=== PATIENT | female | born 1975 | race Caucasian/White ===

== ENCOUNTER → 2016-09-07 | Outpatient (CLI) | payer BC ==
[~2016-09-07] MED LIST: DASETTA 1-35-21 EACH PO; MOBIC15 MG PO; PATADAY2.5 ML OPHTH; XARELTO15 MG PO; XARELTO20 MG PO; ZITHROMAX250 MG PO; ZYRTEC10 MG PO
--- NOTE | ~2016-09-07 | ENPV ---
Vascular Lower Extremities DVT Study Procedure Demographics Patient Name CHIP OLMSTEAD Date of Study 09/07/2016 Patient Number [id number] Gender Female Date of 1975 Age 40 Visit Number [id number] Height Accession Number [id number] Weight Room Number BSA BMI Referring Keesha Resendiz MD Interpreting Charlie Johnson MD Physician Physician Physician Ordering Physician [employer]ist Judith Crowley [facility] Conclusions Summary Right lower extremity negative for DVT Procedure Type of Study: Veins:Lower Extremities DVT Study, Lower Extremity Right. Patient Status:Routine. Study Location:Inpatient Portable. Velocities are measured in cm/s ; Diameters are measured in cm Right Lower Extremities DVT Study Measurements Right 2D and Doppler Measurements + + + + +------+------+ + !Location !Visualized!Compressibility!Thrombosis!Signal!Reflux!Reflux ! ! ! ! ! ! ! !(sec) ! + + + + +------+------+ + !GSV Thigh !Yes !Yes !None !Phasic!No ! ! + + + + +------+------+ + !Common !Yes !Yes !None !Phasic!No ! ! !Femoral ! ! ! ! ! ! ! + + + + +------+------+ + !Prox !Yes !Yes !None !Phasic!No ! ! !Femoral ! ! ! ! ! ! ! + + + + +------+------+ + !Mid Femoral!Yes !Yes !None !Phasic!No ! ! + + + + +------+------+ + !Dist !Yes !Yes !None !Phasic!No ! ! !Femoral ! ! ! ! ! ! ! + + + + +------+------+ + !Popliteal !Yes !Yes !None !Phasic!No ! ! + + + + +------+------+ + !Gastroc !Yes !Yes !None !Phasic!No ! ! + + + + +------+------+ + !PTV !Yes !Yes !None !Phasic!No ! ! + + + + +------+------+ + !Peroneal !Yes !Yes !None !Phasic!No ! ! + + + + +------+------+ + Left Lower Extremities DVT Study Measurements Left 2D and Doppler Measurements + + + + +------+------+ + !Location !Visualized!Compressibility!Thrombosis!Signal!Reflux!Reflux ! ! ! ! ! ! ! !(sec) ! + + + + +------+------+ + !Common !Yes !Yes !None ! ! ! ! !Femoral ! ! ! ! ! ! ! + + + + +------+------+ + Signature dtt: REECE MCKINNON dtd: 09/07/16 1752 Physician Self Edit
== END | disposition disaster alternative care site (69) ==
LOC: GCAR 17:40
DX: R60.9 Edema, unspecified (principal)

== ENCOUNTER → 2016-09-28 | Day surgery (SDC) | payer BC ==
[~2016-09-28] VITALS: Ht 166.4 cm; Wt 91.1 kg
--- NOTE | ~2016-09-28 | OR ---
[facility] 40 Y [address] ROOM: [place] [address] LOCATION: [facility] ADMIT DATE: 09/28/2016 OR/Procedure Report DISCHARGE DATE: FAMILY PHYSICIAN: Enrrique Madden MD ATTENDING PHYSICIAN: Enrrique Madden SURGEON: Gera Saavedra MD BAG SEALER: DATE OF PROCEDURE: 09/28/2016 PROCEDURE: Right L4-L5 transforaminal epidural steroid injection. 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 She has undergone conservative therapy and physical therapy. 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 Madden. Risks, benefits, and alternatives were explained to the patient, she wished to proceed. DESCRIPTION OF PROCEDURE: She was taken to the procedure room and placed in prone position. Fluoroscopy was used to identify the L4-L5 disc interspace. The back was prepped with Betadine x3 and sterile dressing applied on top. 3 mL of 1% of lidocaine was used to the skin. Next, using fluoroscopic guidance, a 22-gauge spinal needle with gentle manual bend was inserted. Once it was felt to be in position, 1 mL of contrast was injected in lateral and AP views. This showed good epidural spread. No intravascular or intrathecal uptake. Next, a mixture of 2 mL of 2% lidocaine and 10 mg of preservative- free Decadron were injected without complication. The stylette placed and needle withdrew. Hemostasis achieved. BLOOD LOSS: None. COMPLICATIONS: None. GERA SAAVEDRA MD JJP/modl /[id number] CC: Enrrique Madden MD PATIENT'S NAME: MERRY OLMSTEADI Gerard [facility] AGE: 40 Y [address] ROOM: [place] [address] LOCATION: [facility] [place] ADMIT DATE: 09/28/2016 OR/Procedure Report DISCHARGE DATE: FAMILY PHYSICIAN: Enrrique Madden MD ATTENDING PHYSICIAN: Enrrique Madden PA-C d: 09/28/162238 t: 10/04/161241, OPERATIVE SUMMARY
== END | disposition disaster alternative care site (69) ==
LOC: GPOC 09-27 16:00 → GSDC 12:53
PROC: 3E0R3BZ Introduction of Anesthetic Agent into Spinal Canal, Percutaneous Approach (ICD-10-PCS; principal; 2016-09-28)
PROC: 3E0R33Z Introduction of Anti-inflammatory into Spinal Canal, Percutaneous Approach (ICD-10-PCS; 2016-09-28)
DX: M51.16 Intervertebral disc disorders with radiculopathy, lumbar region (principal); M48.06 Spinal stenosis, lumbar region; I26.99 Other pulmonary embolism without acute cor pulmonale; I95.9 Hypotension, unspecified; Z88.1 Allergy status to other antibiotic agents; Z98.890 Other specified postprocedural states